=== PATIENT | female | born 1975 ===

== ENCOUNTER 2017-12-06 09:29 | Emergency (ER) | payer SELFPAY ==
[2017-12-06] MEDS ORDERED: Naproxen 500 MG TAB PO STA (10:19)
[2017-12-06] MEDS ORDERED: Naproxen 500 MG TAB PO ONE (10:25)
--- NOTE | 2017-12-06 10:37 | ED PDOC ---
Lower Extremity Pain/Injury Time Seen by Provider: 12/06/17 09:59 Chief Complaint (Nursing): Lower Extremity Problem/Injury Chief Complaint (Provider): sciatica History Per: Patient, Cabana Attendant History/Exam Limitations: no limitations Onset/Duration Of Symptoms: Days, Gradual Current Symptoms Are (Timing): Still Present Severity: Moderate Additional Complaint(s): 42 year old female patient with no significant PMHx was seen and evaluated in ED for LLE pain. Patient states that the pain starts at the calf level which then radiates up the leg all the way to the back. Reports that the pain is mainly on the back of the LE into the lower back. Patient states that she feels like "her left leg falls asleep". Reports that this has been happening since she gave . Reports that she received an epidural injection at the time of her delivery. Reports that recently about a month ago she had a very small fall and since then the numbness and tingling has started to get worst. Denies of any pain in her knee, ankle during weightbearing. Denies of any pain in the LE during ROM aside from the numbness. States that she has been taking Motrin for the pain which has helped a little. Denies of any other treatment prior to coming to the ED. No other pedal complains at this time. No recent F/N/V/C/SOB/ CP/headache. PMHx: Denies PSHx: x 2 SHx: Denies smoking, EtOH or illicit drug usage Allergies: N.K.D.A PMD: Dr. Paiz Past Medical History Reviewed: Historical Data Vital Signs: Last Vital Signs Temp 97.6 F 12/06/17 09:34 Pulse 73 12/06/17 09:34 Resp 19 12/06/17 09:34 BP 141/85 12/06/17 09:34 Pulse Ox 98 12/06/17 09:34 - Medical History PMH: Denies: Diabetes, HTN - Surgical History Surgical History: - Family History Family History: States: Unknown Family Hx - Allergies Allergies/Adverse Reactions: Allergies Allergy/AdvReac Type Severity Reaction Status Date / Time Penicillins Allergy RASH Verified 12/06/17 09:51 Wells Criteria for PE - Wells Criteria for Pulmonary Embolism Clinical Signs and Symptoms of DVT: No P.E is #1 Diagnosis, or Equally Likely: No Heart Rate >100: No Immobilization at least 3 days;Surgery previous 4 weeks: No Previous, objectively diagnosed PE or DVT: No Hemoptysis: No Malignancy w/treatment within 6 months, or palliative: No Total Score: 0 Review of Systems Constitutional: Negative for: Fever, Chills, Weakness Eyes: Negative for: Pain ENT: Negative for: Ear Pain Cardiovascular: Negative for: Chest Pain, Palpitations Respiratory: Negative for: Cough, Shortness of Breath Gastrointestinal: Negative for: Nausea, Vomiting, Abdominal Pain, Diarrhea, Constipation Musculoskeletal: Negative for: Neck Pain Neurological: Negative for: Weakness Physical Exam - Physical Exam Appears: Positive for: Well Head Exam: Positive for: ATRAUMATIC Skin: Positive for: Normal Color Eye Exam: Positive for: Normal appearance Neck: Positive for: Normal Back: Positive for: Normal Inspection Rectal: Positive for: Deferred Extremity: Positive for: Normal ROM, Calf Tenderness, Capillary Refill. Negative for: Pedal Edema, Swelling Neurologic/Psych: Positive for: Alert, Oriented, Other (Straight leg test: Positive) - ECG O2 Sat by Pulse Oximetry: 98 Medical Decision Making Medical Decision Making: Initial: Lumbar spine x-rays Flexeril Naproxen Alejandro Ankle Rules - Malleolar zone tenderness? Posterior edge or tip of lateral malleolus: No Posterior edge or tip of medial malleolus: No Inability to bear weight both immediately and in the ED: No - Midfoot zone tenderness? Base of 5th Metatarsal: No Navicular: No Inability to bear weight both immediately and in the ED: No - XRAY INDICATED Is an ankle x-ray indicated based on findings?: No Disposition - Clinical Impression Clinical Impression: Sciatica of left side - Patient ED Disposition Is Patient to be Admitted: No - Disposition Disposition: Routine/Home Disposition Time: 12:00 Condition: IMPROVED Instructions: Sciatica, Sciatica (DC), Sciatica Exercises Forms: [employer] (Telugu), [employer] (Hebrew)
--- NOTE | 2017-12-06 11:29 | RAD ---
Date of service: 12/06/2017 PROCEDURE: Radiographs of the Lumbar Spine. HISTORY: L lower back apin COMPARISON: No prior. FINDINGS: BONES: Straightened lumbar curvature. No fracture or spondylolisthesis identified. No destructive bony lesion appreciated throughout. Normal vertebral body heights. Facet joints appear unremarkable throughout. No spondylolysis bilaterally. DISC SPACES: Disc interspaces are normal in height throughout. No suspicious endplate changes. OTHER FINDINGS: None. IMPRESSION: Straightened lumbar curvature without fracture or spondylolisthesis appreciable.
[2017-12-06 12:44] VITALS: BP 114/68; PULSE 86; RESP 16; TEMP 98.7; O2SAT 100
== END 2017-12-06 12:47 | disposition home or self-care (01) ==
LOC: H.ER 09:29
DX: M54.32 Sciatica, left side (principal); Z88.0 Allergy status to penicillin

== ENCOUNTER 2018-08-19 11:47 | Emergency (ER) | payer SELFPAY ==
[2018-08-19 11:53] VITALS: BP 144/93; PULSE 90; RESP 18; TEMP 98.1; O2SAT 99; BMI 33.3
--- NOTE | 2018-08-19 13:25 | ED PDOC ---
Lower Extremity Pain/Injury Time Seen by Provider: 08/19/18 12:13 Chief Complaint (Nursing): Lower Extremity Problem/Injury Chief Complaint (Provider): Acute knee pain History Per: Patient, General Superintendent (VOYCE: [id number]) History/Exam Limitations: no limitations Onset/Duration Of Symptoms: Sudden Onset Additional Complaint(s): 43 year old female with a history of sciatica presents to the ED complaining of right knee pain onset this morning. Prior to arrival, patient took Motrin 800mg at 8am. Patient is concerned for a blood clot and states she was hospitalized 11 years ago for blood clot (unsure which leg) status post . Her LMP was 07/29/18. Otherwise, she denies calf pain, SOB/cough, recent fever, weight loss, trauma/falls, recent travel, hormonal therapy, tobacco use, history of cancer, or prolonged immobility. PMD: clinic Past Medical History Reviewed: Historical Data, Nursing Documentation, Vital Signs Vital Signs: Last Vital Signs Temp 98.1 F 08/19/18 11:53 Pulse 90 08/19/18 11:53 Resp 18 08/19/18 11:53 BP 144/93 H 08/19/18 11:53 Pulse Ox 99 08/19/18 11:53 - Medical History Other PMH: sciatica - Surgical History Surgical History: (2x) - Family History Family History: States: Unknown Family Hx - Social History Current smoker - smoking cessation education provided: No Alcohol: None Drugs: Denies - Home Medications Home Medications: Ambulatory Orders Medication Instructions Recorded Cyclobenzaprine [Cyclobenzaprine 10 mg PO TID PRN #15 tab 12/06/17 HCl] Naproxen [Naprosyn] 500 mg PO BID PRN #15 tablet 12/06/17 Acetaminophen [Acetaminophen 8 650 mg PO Q8 PRN #21 tablet.er 08/19/18 Hour] Naproxen 500 mg PO BID PRN #20 tab 08/19/18 - Allergies Allergies/Adverse Reactions: Allergies Allergy/AdvReac Type Severity Reaction Status Date / Time Penicillins Allergy RASH Verified 12/06/17 09:51 Review of Systems ROS Statement: Except As Marked, All Systems Reviewed And Found Negative Musculoskeletal: Positive for: Leg Pain (knee pain ), Other (no calf pain ) Neurological: Negative for: Other (prolonged immobility) Physical Exam - Reviewed Nursing Documentation Reviewed: Yes Vital Signs Reviewed: Yes - Physical Exam Comments: GENERAL APPEARANCE: Patient is awake, alert, oriented x 3, in no acute distress, resting comfortably. SKIN: Warm, dry; (-) cyanosis. CHEST AND RESPIRATORY: (-) rales, (-) rhonchi, (-) wheezes; breath sounds equal bilaterally. Respirations even and nonlabored. HEART AND CARDIOVASCULAR: (-) irregularity NECK: Supple, FROM LOWER EXREMITY: (+) full ROM of knee; mild tenderness to the medial aspect of the knee; (+)varicose veins present throughout bilateral lower extremities that are nontender; (+) sensation and capillary refill intact throughout;(-) edema, (-) ecchymosis, (-)erythema; (-) instability on valgus or varus stress; (- )anterior or posterior drawer sign; (-) calf tenderness or palpable cord; (-) pedal edema; (-) tenderness to popliteal fossa. NEURO AND PSYCH: Mental status as above. Gait: steady. Speech: clear. (-) facial asymmetry - ECG O2 Sat by Pulse Oximetry: 99 (RA) Pulse Ox Interpretation: Normal Medical Decision Making Medical Decision Making: Time: 1245 Impression: acute knee pain; varicose veins of lower extremity Plan: Toradol 30mg Willie Bandage ONCE - applied by Deion BARNES, [place] intact afterwards. Re-evaluation 1315 On re-evaluation, patient reports improvement of symptoms. On exam, patient remains AAOx3, in no acute distress. Vitals stable. Lab/Diagnostic results d/w the patient in great detail. Diagnosis of acute knee pain, varicose veins of lower extremity d/w the patient. Based on history, exam and diagnostic results, plan will be for outpatient follow up with PMD/ortho/vascular. RICE and compression stockings encouraged. Patient instructed to follow-up with pmd / referral provided / the clinic in 1- 2 days without fail. Advised to take medication as prescribed. Return to the emergency room at any time for any new or worsening symptoms. Patient states she fully agrees with and understands discharge instructions. States that she agrees with the plan and disposition. Verbalized and repeated discharge instructions and plan. I have given the patient opportunity to ask any additional questions. ----- Scribe Attestation: Documented by Vinita Guzman, acting as a scribe for Meagan Albarran PA-C. Provider Scribe Attestation: All medical record entries made by the Scribe were at my direction and personally dictated by me. I have reviewed the chart and agree that the record accurately reflects my personal performance of the history, physical exam, medical decision making, and the department course for this patient. I have also personally directed, reviewed, and agree with the discharge instructions and disposition. Disposition - Clinical Impression Clinical Impression: Acute knee pain, Varicose veins of both lower extremities - Patient ED Disposition Is Patient to be Admitted: No Counseled Patient/Family Regarding: Studies Performed, Diagnosis, Need For Follo wup, Rx Given - Disposition Referrals: [facility] [place] [Outside] [facility] [place] [Outside] Rohit Guallpa MD [Staff Provider] - Disposition: Routine/Home Disposition Time: 13:15 Condition: STABLE Additional Instructions: La atencin mdica de emergencia que recibi hoy se dirigi a antoinette sntomas agudos. Si le recetaron algn medicamento, llnelo y tmelo segn las indicaciones. Los sntomas pueden tardar varios blair en resolverse. Regrese al Departamento de Emergencias si antoinette sntomas empeoran, no mejoran o si tiene otros problemas. Comunquese con crowe mdico dentro de 2 blair para jhony nueva evaluacin y eladio un seguimiento o llame a [place] de los mdicos / clnicas a los que de la cruz sido referido y que figuran en el formulario de Informacin de visita al paciente que se incluye en crowe paquete de rafaela. Lleve todos los documentos que le entregaron al momento del rafaela junto con todos los medicamentos que est tomando para crowe visita de seguimiento. Nuestro tratamiento no puede reemplazar la atencin mdica continua por parte de un proveedor de atencin primaria (PCP) fuera del departamento de emergencias. Prescriptions: Acetaminophen [Acetaminophen 8 Hour] 650 mg PO Q8 PRN #21 tablet.er PRN Reason: Pain, Moderate (4-7) Naproxen 500 mg PO BID PRN #20 tab PRN Reason: Pain, Moderate (4-7) Instructions: Varicose Veins and Other Vein Disease in the Legs, Treatment of V aricose Veins of the Leg, Varicose Veins (DC), Patellofemoral Pain (DC), How to Use an Elastic Bandage, Knee Pain Forms: [facility] (Yakut) Print Language: ICELANDIC - POA Present On Arrival: None
== END 2018-08-19 13:38 | disposition home or self-care (01) ==
LOC: H.ER 11:47
DX: M25.561 Pain in right knee (principal); I83.813 Varicose veins of bilateral lower extremities with pain; Z88.0 Allergy status to penicillin
CPT/HCPCS: 96372; 99282; J1885